=== PATIENT | male | born 1955 | race Caucasian/White ===

== ENCOUNTER → 2016-04-01 | Outpatient (CLI) | payer OTHER ==
[~2016-04-01] VITALS: Ht 180.3 cm; Wt 104.3 kg
[~2016-04-01] MED LIST: ASPI81TA85 PO; ATOR1TAB19 PO; COQ-100C2 PO; FISH1000 PO; LIDOCAINE 2% INJ 100 MG/5 ML SDV (FOR ANES.) As Ordered ONE; MULT1TAB18 PO; NS 1,000 ML IV SCH; PROPOFOL 200 MG/20 ML VIAL As Ordered ONE; VALS1TAB46 PO; VITA1CAP2 PO; [UNRECOGNIZED DRUG - OTHER] PO
--- NOTE | 2016-04-01 08:41 | ROOR ---
Patient Name: Gagandeep Winter Procedure Date: 04/01/2016 8:24 AM Date of : 1955 Age: 60 Room: [facility] Gender: Male Note Status: Finalized Procedure: Colonoscopy to Cecum Indications: Screening for colorectal malignant neoplasm, Last colonoscopy: 2006 Providers: Malik Doherty MD Referring MD: DUONG LÓPEZ DO Requesting Provider: Medicines: Monitored Anesthesia Care Complications: No immediate complications. Procedure: Pre-Anesthesia Assessment: - The heart rate, respiratory rate, oxygen saturations, blood pressure, adequacy of pulmonary ventilation, and response to care were monitored throughout the procedure. The Colonoscope was introduced through the anus and advanced to the cecum, identified by appendiceal orifice and ileocecal valve. The colonoscopy was performed without difficulty. The patient tolerated the procedure well. The quality of the bowel preparation was excellent. Findings: The perianal and digital rectal examinations were normal. Non-bleeding internal hemorrhoids were found during retroflexion. The hemorrhoids were small and Grade I (internal hemorrhoids that do not prolapse). No other significant abnormalities were identified in a careful examination of the remainder of the colon. The exam was otherwise without abnormality on direct and retroflexion views. Impression: - Non-bleeding internal hemorrhoids. - The examination was otherwise normal on direct and retroflexion views. - No specimens collected. - The exam was otherwise normal to the cecum. Recommendation: - Patient has a contact number available for emergencies. The signs and symptoms of potential delayed complications were discussed with the patient. Return to normal activities tomorrow. Written discharge instructions were provided to the patient. - High fiber diet. - Discharge patient to home. - Continue present medications. - Repeat colonoscopy in 10 years for screening purposes. - Return to referring physician. - The findings and recommendations were discussed with the patient's family. Malik Doherty MD Malik Doherty MD 04/01/2016 8:41:11 AM This report has been signed electronically. Number of Addenda: 0 Note Initiated On: 04/01/2016 8:24 AM Estimated Blood Loss: Estimated blood loss: none.
[2016-04-01 09:10] VITALS: BP 136/88
== END | disposition home or self-care (01) ==
LOC: M OPP 07:36
PROVIDERS: ATTEND Internal Medicine Gastroenterology
DX: Z12.11 Encounter for screening for malignant neoplasm of colon (principal); K64.0 First degree hemorrhoids; Z86.010 Personal history of colon polyps; I10 Essential (primary) hypertension; E78.00 Pure hypercholesterolemia, unspecified; R06.83 Snoring; Z79.899 Other long term (current) drug therapy; Z79.82 Long term (current) use of aspirin

== ENCOUNTER → 2020-09-24 | Outpatient (CLI) | payer MEDICARE ==
[~2020-09-24] MED LIST changes: -ASPI81TA85 PO; +ASPI81TA86 PO; -LIDOCAINE 2% INJ 100 MG/5 ML SDV (FOR ANES.) As Ordered ONE; -NS 1,000 ML IV SCH; -PROPOFOL 200 MG/20 ML VIAL As Ordered ONE; -VALS1TAB46 PO; +VALS1TAB66 PO; +VITA-183 PO; -VITA1CAP2 PO
--- NOTE | 2020-09-24 12:38 | REP ---
INDICATION: HEMATOSPERMATIA. COMPARISON: None. TECHNIQUE: Real-time sonographic evaluation of the kidneys FINDINGS: Multiple ultrasonographic images of the right kidney show the right kidney to measure 12.3 x 6.4 x 6.4 cm. The renal cortical echotexture is unremarkable. There are no masses. There is good corticomedullary differentiation. There is no hydronephrosis. There are no perinephric fluid collections. Multiple ultrasonographic images of the left kidney show the left kidney to measure 11.6 x 6.2 x 6 cm. The renal cortical echotexture is unremarkable. There are no masses. There is good corticomedullary differentiation. There is no hydronephrosis. There are no perinephric fluid collections. Seen in the lower pole there is a round 1.6 x 1.4 x 1.9 cm sized anechoic structure which exhibits posterior wall enhancement and increased through transmission. IMPRESSION: Simple left renal cyst. The examination is otherwise unremarkable. <Electronically signed by Anurag Crowder > 09/24/20 [id number]
--- NOTE | 2020-09-24 12:43 | REP ---
INDICATION: HEMATOSPERMATIA. COMPARISON: None. TECHNIQUE: Real-time sonographic evaluation of the urinary bladder with pre and postvoid urinary bladder volume calculations FINDINGS: The pre void urinary bladder volume calculation is 143.3 cc and the postvoid urinary bladder volume calculation is 56.8 cc. This renders a 39.6% postvoid residual. No gross masses are identified. Doppler of the UV junction shows uro jet phenomena on the right. IMPRESSION: As above <Electronically signed by Anurag Crowder > 09/24/20 [id number]
== END ==
LOC: M RAD 11:50
PROVIDERS: ATTEND Specialist
DX: R36.1 Hematospermia (principal)

== ENCOUNTER → 2023-12-30 | Outpatient (CLI) | payer MEDICARE | LOC: M SOG 07:50 | PROVIDERS: ATTEND Physician Assistant | DX: M25.562 Pain in left knee (principal) ==

== ENCOUNTER → 2024-10-14 | Outpatient (CLI) | payer MEDICARE | LOC: M WUC 13:23 | PROVIDERS: ATTEND Physician Assistant | DX: R06.2 Wheezing (principal); M47.814 Spondylosis without myelopathy or radiculopathy, thoracic region ==